=== PATIENT | male | born 1965 | race Caucasian/White ===

== ENCOUNTER 2018-09-29 12:04 | Observation (INO) ==
[2018-09-29] MEDS ORDERED: fentaNYL citrate 100 MCG/2 ML VIAL IV STA (13:06)
[2018-09-29] MEDS ORDERED: SODIUM CHLORIDE 0.9% 1000ML 1,000 ML IV ONE (13:06)
[2018-09-29] MEDS ORDERED: ONDANSETRON INJ 2 MG/ML 2 ML VIAL IV STA (13:06)
[2018-09-29 13:08] LABS: Albumin Level 3.2 gm/dl (3.4-5.0); BUN Creatinine Ratio 9.6 (10-20); Calcium 9.1 mg/dl (8.5-10.1); Creatinine Clr Calc Pharmacy 134.7 ml/min; Est GFR (African American) 120.5; Potassium 3.7 mmol/L (3.5-5.1)
[2018-09-29 13:09] LABS: Basophils # (auto) 0.04 K/uL (0-0.2); Basophils % (auto) 0.5 %; Eosinophils # (auto) 0.26 K/uL (0-0.5); Eosinophils % (auto) 3.1 %; Hematocrit (blood only) 43.3 % (42-52); Hemoglobin 15.3 g/dL (14.0-18.0); Immature Granulocytes # (auto) 0.02 K/uL (0.00-0.02); Immature Granulocytes % (auto) 0.2 %; Lymphocytes % (auto) 21.6 %; Mean Corpuscular Hgb Conc 35.3 g/dL (32-36); Mean Corpuscular Volume 91.2 fL (80-100); Mean Platelet Volume 12.4 fL (7.4-10.4); Monocytes # (auto) 0.91 K/uL (0.11-0.59); Monocytes % (auto) 10.9 %; Neutrophils # (auto) 5.29 K/uL (1.4-6.5); Neutrophils % (auto) 63.7 %; Platelet Count 238 K/uL (130-400); RDW Coefficient of Variation 13.6 % (11.5-14.5); RDW Standard Deviation 45.2 fL (36.4-46.3); Red Blood Count 4.75 M/uL (4.7-6.1); White Blood Count 8.32 K/uL (4.8-10.8)
[2018-09-29 13:11] LABS: Albumin Globulin Ratio 0.7 (0.9-2); Bilirubin,Total 0.8 mg/dl (0.2-1); Globulin 4.6 gm/dl (2.5-4.0); Total Protein 7.8 gm/dl (6.4-8.2)
[2018-09-29 13:31] LABS: Appearance Urine Clear (Clear); Bacteria Urine Automated Negative (Negative); Blood Urine Negative (Negative); Color Urine Dark Yellow; Glucose Urine UA Negative (Negative); Ketones Urine Trace (Negative); Leukocyte Esterase Urine Trace (Negative); Nitrite Urine Positive (Negative); Protein Urine Trace (Negative); RBC Urine Automated 0-4 /hpf (0-4); Specific Gravity Urine 1.026 (1.000-1.030); Urobilinogen Urine Negative (Negative); pH Urine 5.5 (4.5-7.5)
[2018-09-29 13:44] LABS: Bilirubin Urine Negative (Negative); Ictotest Urine Negative (Negative)
--- NOTE | 2018-09-29 15:41 | Ultrasound Report ---
US gallbladder HISTORY: 53 years-old Male ruq pain eval for mariann acute right upper quadrant abdominal pain COMPARISON: None available TECHNIQUE: Multiple real time sonographic images of the abdominal right upper quadrant were obtained assessing grayscale appearance and color flow FINDINGS: Limited study secondary to obscuring bowel gas and patient body habitus. Increased echogenicity of th e liver with poor through transmission suggestive of hepatic steatosis with areas of fatty sparing ne ar the sonido hepatis. Cholelithiasis with gallstones measuring up to 2.3 cm. Edematous gallbladder wa ll thickening is noted measuring up to 8 mm. No definite pericholecystic fluid. Sonographic Carlson si gn was unable to be assessed secondary to patient receiving recent pain medication. Common bile duct is normal, 6 mm. Imaged right kidney is unremarkable without hydronephrosis. IMPRESSION: 1. Cholelithiasis with edematous, gallbladder wall thickening. No definite pericholecystic fluid iden tified and the sonographic Carlson sign was unable to be assessed secondary to patient recently receiv ing pain medication. These findings are equivocal for acute cholecystitis. Correlate clinically. A fo llow-up nuclear medicine hepatobiliary scan may also be considered. 2. No biliary ductal dilation. 3. Hepatic steatosis. The above report was generated using voice recognition software. It may contain grammatical, syntax o r spelling errors. Electronically signed by: Angel Ferrell M.D. 09/29/2018 3:39 PM
--- NOTE | 2018-09-29 16:58 | History & Physical Report ---
Date of Service September 29, 2018 Assessment & Plan (1) Acute cholecystitis: This patient has right upper quadrant pain with a mildly elevated white blood cell count and an ultrasound showing cholelithiasis with thickened gallbladder wall all consistent with cholecystitis. I recommended a lapa roscopic cholecystectomy. He is agreed. Explained the possible need to convert to an open procedure. I explained the possible complications of the procedure. I answered his questions. He has signed consent form. Present on Admission?: Yes History of Present Illness Chief Complaint: Right upper quadrant pain Primary Care Provider: NO PCP This is a 53-year-old male with right upper quadrant pain that began approximately 2 days ago after having a. The pain is persisted increased in intensity. He he had some nausea and vomited the pain so. Hungry but is not a very much since. He had an episode of pain like this about 2 months ago but it resolved spontaneously after about 2 hours. The pain does not radiate through to his back. He has no history of jaundice, hepatitis or pancreatitis. He has been moving his bowels and had a normal bowel movement or hematochezia. He has a headache but does not think he has had fever. He denies chills. Allergies Allergy/AdvReac Type Severity Reaction Status Date / Time morphine Allergy Hypotension Verified 09/29/18 14:28 Penicillins Allergy Rash Verified 09/29/18 14:28 Home Medications Home Medications Medication Instructions Recorded Confirmed Type omeprazole magnesium [Prilosec OTC] 20 mg PO BID 09/29/18 09/29/18 History Past Med/Surg History Medical History HTN (hypertension) Surgical History H/O total knee replacement Right S/P tonsillectomy Family History Other Hypertension Social History Preferred Language: Lithuanian Feels Safe at Home: Yes Smoking Status: Current every day smoker Review of Systems Review of Systems: All systems reviewed & are unremarkable except as noted in HPI & below Physical Exam Constitutional: no acute distress Neck: trachea midline Respiratory: normal respiratory effort, lungs clear to auscultation Cardiovascular: Rate/Rhythm: regular rate and regular rhythm Gastrointestinal (Abdomen): Inspection/Auscultation: normal bowel sounds; abdomen not distended Percussion/Palpation: + abdomen tender (Right upper quadrant to moderate palpation) and abdomen soft Skin: no rashes, warm and dry Lymphatic: no cervical lymphadenopathy Results & Data Vital Signs (Past 12 Hours) Vital Signs Temp Pulse Pulse Resp BP BP Pulse Ox 09/29/18 16:00 96 H 20 126/95 97 09/29/18 13:45 96 H 16 149/95 H 97 09/29/18 12:08 36.9 C 121 H 22 135/76 97 Laboratory Results 09/29/18 09/29/18 09/29/18 Range/Units 12:38 12:38 12:38 WBC 8.32 (4.8-10.8) K/uL RBC 4.75 (4.7-6.1) M/uL Hgb 15.3 (14.0-18.0) g/dL Hct 43.3 (42-52) % MCV 91.2 (80-100) fL MCH 32.2 (25-34) pg MCHC 35.3 (32-36) g/dL RDW Std Deviation 45.2 (36.4-46.3) fL RDW Coeff of Danny 13.6 (11.5-14.5) % Plt Count 238 (130-400) K/uL MPV 12.4 H (7.4-10.4) fL Immature Gran % (Auto) 0.2 % Neut % (Auto) 63.7 % Lymph % (Auto) 21.6 % [place] % (Auto) 10.9 % Eos % (Auto) 3.1 % Baso % (Auto) 0.5 % Immature Gran # (Auto) 0.02 (0.00-0.02) K/uL Neut # (Auto) 5.29 (1.4-6.5) K/uL Lymph # (Auto) 1.80 (1.2-3.4) K/uL [place] # (Auto) 0.91 H (0.11-0.59) K/uL Eos # (Auto) 0.26 (0-0.5) K/uL Baso # (Auto) 0.04 (0-0.2) K/uL Sodium 136 (136-145) mmol/L Potassium 3.7 (3.5-5.1) mmol/L Chloride 102 (98-107) mmol/L Carbon Dioxide 29 (21-32) mmol/L Anion Gap 5.0 (3-11) BUN 8 (7-18) mg/dl Creatinine 0.79 (0.6-1.4) mg/dl Est Cr Clr Drug Dosing 134.7 ml/min Est GFR ( Amer) 120.5 Est GFR (Non-Af Amer) 104.0 BUN/Creatinine Ratio 9.6 L (10-20) Glucose 106 H (70-99) mg/dl Calcium 9.1 (8.5-10.1) mg/dl Total Bilirubin 0.8 (0.2-1) mg/dl AST 41 H (15-37) U/L ALT 80 H (12-78) U/L Alkaline Phosphatase 83 (45-117) U/L Total Protein 7.8 (6.4-8.2) gm/dl Albumin 3.2 L (3.4-5.0) gm/dl Globulin 4.6 H (2.5-4.0) gm/dl Albumin/Globulin Ratio 0.7 L (0.9-2) Lipase 131 (73-393) U/L Urine Color Dark Yellow Urine Appearance Clear (Clear) Urine pH 5.5 (4.5-7.5) Ur Specific [place] 1.026 (1.000-1.030) Urine Protein Trace H (Negative) Urine Glucose (UA) Negative (Negative) Urine Ketones Trace H (Negative) Urine Blood Negative (Negative) Urine Nitrite Positive A (Negative) Urine Bilirubin Negative (Negative) Urine Urobilinogen Negative (Negative) Ur Leukocyte Esterase Trace H (Negative) Urine WBC (Auto) 1-5 (0-5) /hpf Urine RBC (Auto) 0-4 (0-4) /hpf U Hyaline Cast (Auto) 1-5 (0-5) /lpf U Epithel Cells (Auto) 5-10 H (0-5) /lpf Urine Bacteria (Auto) Negative (Negative) Diagnostic Findings US gallbladder HISTORY: 53 years-old Male ruq pain eval for mariann acute right upper quadrant abdominal pain COMPARISON: None available TECHNIQUE: Multiple real time sonographic images of the abdominal right upper quadrant were obtained assessing grayscale appearance and color flow FINDINGS: Limited study secondary to obscuring bowel gas and patient body habitus. Increased echogenicity of the liver with poor through transmission suggestive of hepatic steatosis with areas of fatty sparing near the sonido hepatis. Cholelithiasis with gallstones measuring up to 2.3 cm. Edematous gallbladder wall thickening is noted measuring up to 8 mm. No definite pericholecystic fluid. Sonographic Carlson sign was unable to be assessed secondary to patient receiving recent pain medication. Common bile duct is normal, 6 mm. Imaged right kidney is unremarkable without hydronephrosis. IMPRESSION: 1. Cholelithiasis with edematous, gallbladder wall thickening. No definite pericholecystic fluid identified and the sonographic Carlson sign was unable to be assessed secondary to patient recently receiving pain medication. These findings are equivocal for acute cholecystitis. Correlate clinically. A follow- up nuclear medicine hepatobiliary scan may also be considered. 2. No biliary ductal dilation. 3. Hepatic steatosis.
[2018-09-29] MEDS ORDERED: PROPOFOL IV EMULSION 10 MG/ML 20 ML VIAL IV ONE (17:14)
[2018-09-29] MEDS ORDERED: LIDOCAINE HCL 2% 2 ML VIAL/AMP(20MG/ML) INFIL ONE (17:14)
[2018-09-29] MEDS ORDERED: MIDAZOLAM HCL 1 MG/ML 2ML VIAL ONE (17:15)
[2018-09-29] MEDS ORDERED: fentaNYL citrate 100 MCG/2 ML VIAL ONE ×3 (17:15→21:11)
[2018-09-29] MEDS ORDERED: ATROPINE SULFATE 0.1 MG/ML 10ML SYR IV PRN (17:39)
[2018-09-29] MEDS ORDERED: PHENYLEPHRINE 100MCG/ML 5ML SYR IV PRN (17:39)
[2018-09-29] MEDS ORDERED: HYDROmorphone INJ 1 MG/ML SYRINGE IV PRN (17:39)
[2018-09-29] MEDS ORDERED: LABETALOL HCL IV 5 MG/ML 20ML IV PRN (17:39)
[2018-09-29] MEDS ORDERED: ePHEDrine sulfate 50 MG/ML AMP IV PRN (17:39)
[2018-09-29] MEDS ORDERED: fentaNYL citrate 100 MCG/2 ML VIAL IV PRN (17:39)
[2018-09-29] MEDS ORDERED: ONDANSETRON INJ 2 MG/ML 2 ML VIAL IV PRN (17:39)
[2018-09-29] MEDS ORDERED: BUPIVACAINE 0.5 % 5 MG/1 ML MPF 30ML VIAL ONE (17:46)
[2018-09-29] MEDS ORDERED: CEFAZOLIN 250 MG/ML 1 GM VIAL ONE (17:46)
--- NOTE | 2018-09-29 17:47 | Anesthesiology Consultation ---
Date of Service September 29, 2018 Assessment & Plan (1) Encounter for pre-operative examination: Chart Review Chart Review: Acceptable Risk for Surgery and Patient NOT seen in Pre Admission Testing Consults Requested none History Surgery Operation Date: 09/29/18 09:35 Proposed Procedures p Laparoscopic Cholecystectomy - Mars Busby MD Height/Weight Height: 5 ft 11 in Weight: 102.2 kg Allergies Allergy/AdvReac Type Severity Reaction Status Date / Time morphine Allergy Hypotension Verified 09/29/18 14:28 Penicillins Allergy Rash Verified 09/29/18 14:28 Medications Home Medications Medication Instructions Recorded Confirmed Last Taken omeprazole magnesium [Prilosec OTC] 20 mg PO BID 09/29/18 09/29/18 09/29/18 NPO Date Last Intake of Fluids: 09/28/18 Time Last Intake of Fluids: 08:00 Date Last Intake of Solids: 09/28/18 Time Last Intake of Solids: 08:00 Past Medical History Medical History HTN (hypertension) Obesity Smoker Past Family History Family History Other Hypertension Past Surgical History Surgical History H/O total knee replacement Right S/P tonsillectomy Social History Smoking Status: Current every day smoker Physical Exam Vital Signs Last Vital Signs Temp 36.4 C L 09/29/18 17:44 Pulse 100 H 09/29/18 17:44 Resp 18 09/29/18 17:44 BP 112/89 09/29/18 17:44 Pulse Ox 97 09/29/18 17:44 Testing Laboratory Results 09/29/18 12:38 09/29/18 12:38 Urine Color Dark Yellow 09/29/18 12:38 Urine Appearance Clear (Clear) 09/29/18 12:38 Urine pH 5.5 (4.5-7.5) 09/29/18 12:38 Ur Specific [place] 1.026 (1.000-1.030) 09/29/18 12:38 Urine Protein Trace (Negative) H 09/29/18 12:38 Urine Glucose (UA) Negative (Negative) 09/29/18 12:38 Urine Ketones Trace (Negative) H 09/29/18 12:38 Urine Nitrite Positive (Negative) A 09/29/18 12:38 Ur Leukocyte Esterase Trace (Negative) H 09/29/18 12:38 Urine WBC (Auto) 1-5 /hpf (0-5) 09/29/18 12:38 Urine RBC (Auto) 0-4 /hpf (0-4) 09/29/18 12:38 U Hyaline Cast (Auto) 1-5 /lpf (0-5) 09/29/18 12:38 U Epithel Cells (Auto) 5-10 /lpf (0-5) H 09/29/18 12:38 Urine Bacteria (Auto) Negative (Negative) 09/29/18 12:38 Electrocardiogram Date: 09/29/18 Findings: + NSR @ (03)
[2018-09-29] MEDS ORDERED: CLINDAMYCIN PHOS 300 MG/2 ML VIAL ONE (18:08)
[2018-09-29] MEDS ORDERED: HYDROmorphone INJ 2 MG/ML SYR/VIAL ONE (18:11)
[2018-09-29] MEDS: HEPARIN (PORCINE) 1000 UNIT/ML 10 ML (CATH LAB USE ONLY) ONE ×2 (18:17→19:21)
--- NOTE | 2018-09-29 18:21 | Emergency Department Note ---
Entered by Lesly Madden acting as a scribe for Manuel Lara MD History of Present Illness General Chief complaint: Abdominal Pain Stated complaint: PAIN IN [id number] ATE IN 2 DAYS Source: patient Mode of arrival: ambulatory Limitations: no limitations History of Present Illness Onset (ago): day(s) 3 Location: abdomen (RUQ) Radiation: back Pain Consistency: + constant Maximum Pain Intensity: 8 Current Pain Intensity: 5 Quality: + sharp Relieved By: + none Exacerbated By: + eating (greasy foods) and + movement Associated symptoms: + loss of appetite, + nausea/vomiting and + other (+yandy rrhea, -hematochezia, -melena ) Treatments prior to arrival: none The patient is a 53 year old male who presents to the ED with complaints of persistent RUQ abdominal pain for the past 3 days. He rates his pain as a 5/10 in severity and states it feels sharp in nature. Movement worsens his pain. The pain does radiate into his back. He states he has not been eating much as eating worsens his pain, especially eating greasy foods. He has been nauseous and has vomited. He denies any bloody or black stools but complains of diarrhea. He last drank alcohol about 1 week ago. He does state that he was previously diagnosed with high blood pressure but was taken off of medications for it. Home Medications Home Medications Medication Instructions Recorded Confirmed Type omeprazole magnesium [Prilosec OTC] 20 mg PO BID 09/29/18 09/29/18 History Allergies Allergy/AdvReac Type Severity Reaction Status Date / Time morphine Allergy Hypotension Verified 09/29/18 14:28 Penicillins Allergy Rash Verified 09/29/18 14:28 Past Med/Surg History Medical History HTN (hypertension) Obesity Smoker Surgical History H/O total knee replacement Right S/P tonsillectomy Family History Other Hypertension Social History Preferred Language: Botswanan Feels Safe at Home: Yes Smoking Status: Current every day smoker Review of Systems See HPI for pertinent positives & negatives. and A total of 10 systems reviewed and were otherwise negative Physical Exam Vital Signs Vital Signs - 24 hr 09/29/18 12:08 09/29/18 13:45 09/29/18 16:00 Temperature 36.9 C Temperature Source Oral Sepsis Recent Fever Within 48 Hours No Sepsis New/Unexplained Change in Mental Status No Sepsis Action Taken by Nursing No Action Required Pulse Rate 121 H Pulse Rate [Finger] 96 H 96 H Pulse Rhythm Regular Pulse Rhythm [Finger] Regular Pulse Strength Normal Pulse Strength [Finger] Normal Respiratory Rate 22 16 20 Respiratory Effort / Characteristics Non-Labored Spontaneous Respiratory Depth Normal Respiratory Pattern Regular Blood Pressure 135/76 Blood Pressure [Right Arm] 149/95 H 126/95 Blood Pressure Mean 95 Blood Pressure Mean [Right Arm] 113 105 Blood Pressure Position Sitting Blood Pressure Position [Right Arm] Pulse Oximetry 97 97 97 Oxygen Delivery Method Room Air Room Air Room Air 09/29/18 17:30 09/29/18 17:44 Temperature 36.4 C L Temperature Source Oral Sepsis Recent Fever Within 48 Hours Sepsis New/Unexplained Change in Mental Status Sepsis Action Taken by Nursing Pulse Rate 84 Pulse Rate [Finger] 100 H Pulse Rhythm Pulse Rhythm [Finger] Regular Pulse Strength Pulse Strength [Finger] Normal Respiratory Rate 20 18 Respiratory Effort / Characteristics Non-Labored Spontaneous Respiratory Depth Normal Respiratory Pattern Regular Blood Pressure 124/90 Blood Pressure [Right Arm] 112/89 Blood Pressure Mean Blood Pressure Mean [Right Arm] 96 Blood Pressure Position Blood Pressure Position [Right Arm] Semi-fowlers Pulse Oximetry 97 97 Oxygen Delivery Method Room Air Room Air Constitutional: Vital signs reviewed. Eyes: Pupils are equal round reactive to light. Conjunctiva are noninjected. ENT: Pharynx is clear without erythema or exudate. Mucous membranes are moist. Neck supple without meningeal signs. Respiratory: Clear to auscultation bilaterally. Breath sounds are equal bilaterally. Cardiovascular: Regular rate and rhythm. No rubs or gallops. GI: Soft, nondistended, RUQ tenderness with positive Carlson's sign. Bowel sounds are present. Musculoskeletal: No peripheral edema. No lower extremity tenderness. No CVA tenderness. Integumentary: No cyanosis. Neurological: The patient is awake and alert. No focal deficits. Psychiatric: Normal affect. Course 1302: The patient was evaluated in room A11B and a complete history and physical were performed. 1600: I reevaluated the patient. He is distiller with a [place] sign. I discussed his test results with him and will consult with general surgery. 1619: I discussed the patients case with Dr. Busby, [facility] Surgery. The patient will be further evaluated. Consultations Consultation #1: I discussed the patients case with Dr. Busby, [facility] Surgery. The patient will be further evaluated. Time: 16:19 Administered Medications Discontinued Medications Cefazolin Sodium (Ancef) Confirm Administered Dose 1,000 mg .ROUTE .STK-MED ONE Stop: 09/29/18 17:47 Last Admin: 09/29/18 18:17 Dose: Not Given Documented by: [id number] Clindamycin Phosphate (Cleocin) Confirm Administered Dose 900 mg .ROUTE .STK-MED ONE Stop: 09/29/18 18:09 Last Admin: 09/29/18 18:07 Dose: 900 mg Documented by: [id number] Fentanyl Citrate (Fentanyl Citrate) 50 mcg IV NOW STA Stop: 09/29/18 13:07 Last Admin: 09/29/18 13:19 Dose: 50 mcg Documented by: [id number] Heparin Sodium (Porcine) (Heparin Iv Bolus ([employer] Greek [employer] Professor Use Only)) Confirm Administered Dose 10,000 units .ROUTE .STK-MED ONE Stop: 09/29/18 17:47 Last Admin: 09/29/18 18:17 Dose: 5,000 units Documented by: [id number] Sodium Chloride (Nss 1000ml) 1,000 mls @ 999 mls/hr IV .Q1H1M ONE Stop: 09/29/18 14:06 Last Infusion: 09/29/18 16:00 Dose: 0 mls/hr Documented by: [id number] Admin: 09/29/18 13:19 Dose: 999 mls/hr Documented by: [id number] Ondansetron HCl (Zofran) 4 mg IV NOW STA Stop: 09/29/18 13:07 Last Admin: 09/29/18 13:19 Dose: 4 mg Documented by: [id number] Medical Decision Making Differential Diagnosis Differential diagnoses considered include cholelithiasis, cholecystitis, peptic ulcer disease, duodenitis, pancreatitis, kidney stone. Medical Records Attestation: I reviewed the patient's medical records. I did perform a limited focused review of portions of the patient's old chart on the electronic medical record. The patient has had no prior visits to this hospital. Home Medications Current Medication List: was personally reviewed by me Laboratory Data Attestation: I reviewed the patient's lab results. Result diagrams: 09/29/18 12:38 09/29/18 12:38 Lab Results 09/29/18 09/29/18 09/29/18 Range/Units 12:38 12:38 12:38 WBC 8.32 (4.8-10.8) K/uL RBC 4.75 (4.7-6.1) M/uL Hgb 15.3 (14.0-18.0) g/dL Hct 43.3 (42-52) % MCV 91.2 (80-100) fL MCH 32.2 (25-34) pg MCHC 35.3 (32-36) g/dL RDW Std Deviation 45.2 (36.4-46.3) fL RDW Coeff of Danny 13.6 (11.5-14.5) % Plt Count 238 (130-400) K/uL MPV 12.4 H (7.4-10.4) fL Immature Gran % (Auto) 0.2 % Neut % (Auto) 63.7 % Lymph % (Auto) 21.6 % [place] % (Auto) 10.9 % Eos % (Auto) 3.1 % Baso % (Auto) 0.5 % Immature Gran # (Auto) 0.02 (0.00-0.02) K/uL Neut # (Auto) 5.29 (1.4-6.5) K/uL Lymph # (Auto) 1.80 (1.2-3.4) K/uL [place] # (Auto) 0.91 H (0.11-0.59) K/uL Eos # (Auto) 0.26 (0-0.5) K/uL Baso # (Auto) 0.04 (0-0.2) K/uL Sodium 136 (136-145) mmol/L Potassium 3.7 (3.5-5.1) mmol/L Chloride 102 (98-107) mmol/L Carbon Dioxide 29 (21-32) mmol/L Anion Gap 5.0 (3-11) BUN 8 (7-18) mg/dl Creatinine 0.79 (0.6-1.4) mg/dl Est Cr Clr Drug Dosing 134.7 ml/min Est GFR ( Amer) 120.5 Est GFR (Non-Af Amer) 104.0 BUN/Creatinine Ratio 9.6 L (10-20) Glucose 106 H (70-99) mg/dl Calcium 9.1 (8.5-10.1) mg/dl Total Bilirubin 0.8 (0.2-1) mg/dl AST 41 H (15-37) U/L ALT 80 H (12-78) U/L Alkaline Phosphatase 83 (45-117) U/L Total Protein 7.8 (6.4-8.2) gm/dl Albumin 3.2 L (3.4-5.0) gm/dl Globulin 4.6 H (2.5-4.0) gm/dl Albumin/Globulin Ratio 0.7 L (0.9-2) Lipase 131 (73-393) U/L Urine Color Dark Yellow Urine Appearance Clear (Clear) Urine pH 5.5 (4.5-7.5) Ur Specific [place] 1.026 (1.000-1.030) Urine Protein Trace H (Negative) Urine Glucose (UA) Negative (Negative) Urine Ketones Trace H (Negative) Urine Blood Negative (Negative) Urine Nitrite Positive A (Negative) Urine Bilirubin Negative (Negative) Urine Urobilinogen Negative (Negative) Ur Leukocyte Esterase Trace H (Negative) Urine WBC (Auto) 1-5 (0-5) /hpf Urine RBC (Auto) 0-4 (0-4) /hpf U Hyaline Cast (Auto) 1-5 (0-5) /lpf U Epithel Cells (Auto) 5-10 H (0-5) /lpf Urine Bacteria (Auto) Negative (Negative) Imaging Data Radiologist's Impression: Radiology results as stated below per my review and the radiologist's interpretation: US gallbladder HISTORY: 53 years-old Male ruq pain eval for mariann acute right upper quadrant abdominal pain COMPARISON: None available TECHNIQUE: Multiple real time sonographic images of the abdominal right upper quadrant were obtained assessing grayscale appearance and color flow FINDINGS: Limited study secondary to obscuring bowel gas and patient body habitus. Increased echogenicity of the liver with poor through transmission suggestive of hepatic steatosis with areas of fatty sparing near the sonido hepatis. Cholelithiasis with gallstones measuring up to 2.3 cm. Edematous gallbladder wall thickening is noted measuring up to 8 mm. No definite pericholecystic fluid. Sonographic Carlson sign was unable to be assessed secondary to patient receiving recent pain medication. Common bile duct is normal, 6 mm. Imaged right kidney is unremarkable without hydronephrosis. IMPRESSION: 1. Cholelithiasis with edematous, gallbladder wall thickening. No definite pericholecystic fluid identified and the sonographic Carlson sign was unable to be assessed secondary to patient recently receiving pain medication. These findings are equivocal for acute cholecystitis. Correlate clinically. A follow- up nuclear medicine hepatobiliary scan may also be considered. 2. No biliary ductal dilation. 3. Hepatic steatosis. The above report was generated using voice recognition software. It may contain grammatical, syntax or spelling errors. Electronically signed by: Angel Ferrell M.D. 09/29/2018 3:39 PM Blood Pressure Blood Pressure Findings: Elevated blood pressure Blood Pressure Disposition: elevated BP felt to be situational MDM Narrative I did evaluate the patient as noted above. Patient is presenting with right upper quadrant tenderness and pain. He does have a Carlson sign. IV access was established. The patient was placed on a continuous cafeteria monitor. I did treat the patient with IV fentanyl and Zofran. He was also given normal saline IV. I did order a urine analysis. I did order and review the patient's blood work as noted in the electronic medical record. His white blood cell count is not elevated. LFTs are unremarkable. Lipase is not elevated. I did order an ultrasound the gallbladder. I did review the images myself as well as the radiology report as described above. He does have gallstones with an edematous thickened gallbladder wall. I did reassess the patient. He is still having p ain and has a Carlson sign. I did speak to Dr. Busby who took the patient to the operating room. Impression & Plan Acute cholecystitis Discharge Plan Visit Data Chief Complaint: Abdominal Pain Stated Complaint: PAIN IN [id number] ATE IN 2 DAYS ED Provider: Manuel Lara Discharge Problem: Acute cholecystitis Patient Disposition: Being Evaluated by Surgeon Discharge Instructions Interventions: ED Discharge Assessment Last Done: 09/29/18 17:30 The scribe's documentation has been prepared under my direction and personally reviewed by me in its entirety. I confirm that the note above accurately reflects all work, treatment, procedures, and medical decision making performed by me.
[2018-09-29] MEDS ORDERED: DEXAMETHASONE SOD INJ 4 MG/ML VIAL ONE (18:41)
[2018-09-29] MEDS ORDERED: KETOROLAC 30 MG/ML VIAL ONE (18:41)
[2018-09-29] MEDS ORDERED: NEOSTIGMINE METHYLSULFATE 5 MG/5 ML SYR ONE (18:41)
[2018-09-29] MEDS ORDERED: ONDANSETRON INJ 2 MG/ML 2 ML VIAL ONE (18:41)
[2018-09-29] MEDS ORDERED: GLYCOPYRROLATE 0.2 MG/ML VIAL ONE (18:41)
[2018-09-29] MEDS ORDERED: ROCURONIUM BROMIDE 10 MG/ML 5 ML VIAL ONE ×3 (18:43→19:35)
[2018-09-29] MEDS ORDERED: FLOSEAL HEMOSTATIC MATRIX 10ML TOP ONE (19:47)
--- NOTE | 2018-09-29 20:49 | Post Operative Brief Note ---
Immediate Post Op Note v1 Date of Surgery September 29, 2018 Pre & Post Diagnosis Operation Date: 09/29/18 09:35 Pre-Op Diagnosis: Acute Cholecystitis Post-Op Diagnosis: Acute Cholecystitis Procedure Operation Date: 09/29/18 09:35 Actual Procedures Laparoscopic Cholecystectomy(Not Applicable) - Mars Busby MD Surgeon Mars Busby MD [employer] And [employer] Supervisor None Estimated Blood Loss 100 Findings Consistent with Post-Op Diagnosis Specimens Gallbladder and contents Drains Kostas-Arshad Drain (10 flat in subhepatic space) Anesthesia Type General Complications none
[2018-09-29] MEDS ORDERED: LABETALOL HCL IV 5 MG/ML 20ML IV ONE (21:00)
[2018-09-29] MEDS ORDERED: HYDROmorphone INJ 1 MG/ML SYRINGE ONE (21:46)
--- NOTE | 2018-09-29 22:00 | Anesthesiology Progress Note ---
Date of Service September 29, 2018 Anesthesia Post Procedure Vital Signs Vital Signs: Temp Pulse Pulse Pulse Resp BP BP 09/29/18 21:50 37.0 C 97 H 21 151/103 H 09/29/18 21:40 37.0 C 91 H 15 135/108 H 09/29/18 21:30 37.0 C 92 H 20 119/103 H 09/29/18 21:20 37.0 C 93 H 19 144/111 H 09/29/18 21:10 37.0 C 99 H 16 144/113 H 09/29/18 20:58 37.0 C 99 H 16 160/101 H 09/29/18 17:44 36.4 C L 100 H 18 112/89 09/29/18 17:30 84 20 124/90 09/29/18 16:00 96 H 20 126/95 09/29/18 13:45 96 H 16 149/95 H 09/29/18 12:08 36.9 C 121 H 22 135/76 Pulse Ox 09/29/18 21:50 96 09/29/18 21:40 97 09/29/18 21:30 96 09/29/18 21:20 99 09/29/18 21:10 96 09/29/18 20:58 97 09/29/18 17:44 97 09/29/18 17:30 97 09/29/18 16:00 97 09/29/18 13:45 97 09/29/18 12:08 97 Pain Intensity Abdomen: Pain Intensity: 3 Transfer of Care Handoff Completed per policy Notes Mental Status: alert / awake / arousable Patient Amnestic to Procedure: Yes Nausea / Vomiting: adequately controlled Pain: adequately controlled Airway Patency, RR, SpO2: stable & adequate BP & HR: stable & adequate Hydration State: stable & adequate Anesthetic Complications: no major complications apparent and Pt Satisfied with anesthetic care
[2018-09-29] MEDS: D5W AND 1/2NSS + 20MEQ KCL 20 MEQ/1,000 ML BAG IV SCH (23:00)
[2018-09-29] MEDS: ONDANSETRON INJ 2 MG/ML 2 ML VIAL IV PRN (23:31)
[2018-09-30] MEDS ORDERED: PROMETHAZINE HCL 12.5 MG in SODIUM CHLORIDE 0.9% 50 ML IV PRN (00:12)
[2018-09-30] MEDS: PANTOprazole 40 MG TAB PO SCH ×3 (00:25→20:40)
[2018-09-30] MEDS: OXYCODONE/ACETAMINOPHEN 5mg/325mg TAB PO PRN ×5 (00:33→23:16)
[2018-09-30] MEDS: CIPROFLOXACIN 400 MG/200 ML BAG IV SCH ×2 (00:48→12:58)
--- NOTE | 2018-09-30 04:34 | Operative Report ---
DATE OF OPERATION: 09/29/2018 DATE OF PROCEDURE: 09/29/2018 PREOPERATIVE DIAGNOSIS: Acute cholecystitis. POSTOPERATIVE DIAGNOSIS: Acute cholecystitis. PROCEDURE: Laparoscopic cholecystectomy. SURGEON: Mars Busby MD FINDINGS: The gallbladder was acutely inflamed. It was distended. There were multiple large stones within the lumen. There was a lot of thickening of the peritoneum and connective tissue, surrounding that area. The cystic duct was not dilated. There were adhesions of the omentum plastered to the entire wall of the gallbladder and to the liver surface around the gallbladder. The liver was of normal size and contour and the visible bowel appeared normal. TECHNIQUE: The patient was given a general anesthetic and the area was prepped and draped in the usual sterile fashion. Transverse incision was made below the umbilicus, carried down through the subcutaneous tissue to the fascia which was grasped with 2 Tiana clamps and incised between. The peritoneum was identified, incised, and the introducer was placed bluntly. The abdomen was then insufflated to a pressure of 15 mmHg with carbon dioxide. The upper midline, midclavicular and anterior axillary introducers were placed under direct vision through small skin incisions. The patient was placed in reverse Trendelenburg position and airplane left. There was some omentum up over the anterior surface of the liver, it was brought down below the edge of the liver which exposed the fact that there were omental adhesions that were densely adhesed to the gallbladder and also to the liver edge and to the liver surface to the medial and lateral sides of the gallbladder. In fact, I could not even initially see the wall of the gallbladder. I placed downward traction on the omentum and dissected it away from the liver first around the edge and then working medial to lateral until I could identify the fundus wall of the gallbladder. I then had to sharply dissect the omentum away from the wall of the gallbladder there. I then was able to work down along the lateral side of the gallbladder dissecting adhesions away from the liver to expose the wall of the gallbladder. I could not grasp the gallbladder and so the drainage needle was brought under direct vision and placed into the gallbladder and the gallbladder was aspirated. That allowed me to grasp the gallbladder to some degree and place upward lateral tension. I then had to dissect the plastered omentum away from the wall of the gallbladder. It required significant dissection almost millimeter by millimeter as a distinct plane was difficult to identify. In working down towards the neck of the gallbladder, there were adhesions to the undersurface of the liver and I had to divide those as well on the medial side of the gallbladder. I then continued that dissection down. It was difficult to identify exactly where the infundibulum and the neck of the gallbladder was located. Further dissection of the omentum on the lateral side exposed the infundibulum and towards the neck of the gallbladder and I peeled the additional omentum away, then was able to grasp that and place upward traction. There was significant thickening of the peritoneum over the neck of the gallbladder. This required again very careful dissection as a plane was not well-established, but I was able to follow the wall down and was able then to get underneath the lateral aspect of the infundibulum and placed lateral traction which opened somewhat the triangle of Calot. I then dissected the peritoneum over the infundibulum and into the triangle of Calot and divided some of the attachments of the liver there. It required some hydrodissection with the auto air conditioning installer as well as careful again millimeter by millimeter dissection until I could identify the cystic duct. I then was able to establish a plane along the medial aspect of the cystic duct and identify the cystic artery. I was able to separate the thickened adhesions posteriorly isolating the cystic artery. I placed 2 clips on the proximal artery, one near the gallbladder and divided. That allowed for a little bit better mobilization of the neck of the gallbladder. I was then able to dissect some very thickened peritoneum and connective tissue away from the medial wall and establish a plane behind the cystic duct and identify its junction with the gallbladder confidently. Two clips were placed on the proximal cystic duct, 1 near the gallbladder and it was divided. That allowed me to elevate the infundibulum and identify a small posterior branch of the artery which was clamped and divided. I then worked up along the medial side of the gallbladder and then along the lateral side, dividing the attachments and working posteriorly. There was not a well-established plane between the gallbladder wall and the liver. I then placed lateral traction on the fundus and divided the fundus away from the liver. I was then able to peel the gallbladder away on the upper side. I then worked down along the medial aspect of the gallbladder, dividing the thickened peritoneum and working towards the lateral side. That allowed me to then identify the attachments on the lateral side. I worked from the fundus down trying to establish a plane behind the gallbladder, so as to not leave part of the wall of the gallbladder behind. Eventually all of the attachments were divided, and I was able to completely separate the gallbladder. I then placed the gallbladder into an Endobag. It was brought out through the upper midline incision where I had to increase the length of the incision in all of the layers in order to extract it but that was accomplished. I placed 2 stitches in the fascia of the upper midline site first in order to close some of that, to prevent gas escape while I replace the introducer. The liver edge was elevated. The subdiaphragmatic and subhepatic spaces were irrigated and irrigation removed. Any blood loss was evacuated. The gallbladder bed of the liver was inspected. There was no bleeding. I inspected the clips and they were intact. I then continued to irrigate and then removed the irrigation and repeated that until the return was clear. Because of the raw surface of the liver, I filled the gallbladder bed of the liver with FloSeal. I brought a 10 mm Ksotas-Arshad drain after cutting it to size out through the anterior axillary introducer site. It was secured at the skin level with a 3-0 nylon. The gas was allowed to escape and the introducers were removed. The fascia of the umbilical and upper midline introducer sites was closed with interrupted 0 Vicryl and the skin of all the incisions, remaining was closed with 4-0 Monocryl in either an interrupted or running subcuticular fashion. The skin was anesthetized with 0.5% Marcaine. The skin was cleansed, dried, benzoin placed, Steri-Strips applied. ESTIMATED BLOOD LOSS: 100 mL. Sponge, needle and instrument counts were correct prior to closure. The patient tolerated the surgical procedure without complication and was transferred to recovery. I attest to the content of the Intraoperative Record and any orders documented therein. Any exceptions are noted below. HILARY
[2018-09-30] MEDS: D5W AND 1/2NSS + 20MEQ KCL 20 MEQ/1,000 ML BAG IV SCH ×3 (06:22→23:14)
[2018-09-30 07:22] LABS: Basophils # (auto) 0.01 K/uL (0-0.2); Basophils % (auto) 0.1 %; Eosinophils # (auto) 0.01 K/uL (0-0.5); Eosinophils % (auto) 0.1 %; Hemoglobin 12.7 g/dL (14.0-18.0); Immature Granulocytes # (auto) 0.02 K/uL (0.00-0.02); Immature Granulocytes % (auto) 0.2 %; Lymphocytes # (auto) 1.01 K/uL (1.2-3.4); Lymphocytes % (auto) 11.5 %; Mean Corpuscular Hgb Conc 34.3 g/dL (32-36); Mean Corpuscular Volume 90.9 fL (80-100); Mean Platelet Volume 12.1 fL (7.4-10.4); Monocytes # (auto) 0.61 K/uL (0.11-0.59); Neutrophils % (auto) 81.1 %; Platelet Count 237 K/uL (130-400); RDW Coefficient of Variation 13.8 % (11.5-14.5); RDW Standard Deviation 45.5 fL (36.4-46.3); Red Blood Count 4.07 M/uL (4.7-6.1); White Blood Count 8.76 K/uL (4.8-10.8)
[2018-09-30] MEDS: MoRPHine SULFATE 4 MG/ML 1 ML CARP\\VIAL IV PRN ×3 (09:06→18:17)
--- NOTE | 2018-09-30 09:17 | Surgery Progress Note ---
Date of Service September 30, 2018 Assessment & Plan (1) Acute cholecystitis: Postoperative day #1, status post laparoscopic cholecystectomy Doing well Tolerating a diet Continue to monitor KELLI output Continue analgesia Increase ambulation White blood cell count has returned to normal H&H stable Present on Admission?: Yes Subjective Postoperative day #1, status post laparoscopic cholecystectomy Has some discomfort in the right upper quadrant especially with a deep breath Denies shortness of breath however Tolerated a regular diet without nausea or vomiting Has passed a small amount of flatus [facility] has had 90 cc of serosanguineous out since surgery Results & Data Vital Signs (Past 12 Hours) Vital Signs Temp Pulse Pulse Resp BP BP Pulse Ox 09/30/18 06:56 36.8 C 98 H 18 114/74 93 09/30/18 05:45 36.9 C 70 18 133/87 96 09/30/18 01:45 36.6 C 90 18 120/79 96 09/30/18 00:45 36.4 C L 98 H 16 109/78 97 09/29/18 23:44 36.7 C 94 H 16 130/82 93 09/29/18 23:41 36.4 C L 95 H 18 136/74 94 09/29/18 23:11 36.8 C 75 18 115/73 94 09/29/18 22:30 37.0 C 85 15 132/90 100 09/29/18 22:00 37.0 C 85 15 132/90 100 09/29/18 21:50 37.0 C 97 H 21 151/103 H 96 09/29/18 21:40 37.0 C 91 H 15 135/108 H 97 09/29/18 21:30 37.0 C 92 H 20 119/103 H 96 09/29/18 21:20 37.0 C 93 H 19 144/111 H 99 Laboratory Results 09/30/18 09/29/18 09/29/18 Range/Units 07:09 12:38 12:38 WBC 8.76 (4.8-10.8) K/uL RBC 4.07 L (4.7-6.1) M/uL Hgb 12.7 L (14.0-18.0) g/dL Hct 37.0 L (42-52) % MCV 90.9 (80-100) fL MCH 31.2 (25-34) pg MCHC 34.3 (32-36) g/dL RDW Std Deviation 45.5 (36.4-46.3) fL RDW Coeff of Danny 13.8 (11.5-14.5) % Plt Count 237 (130-400) K/uL MPV 12.1 H (7.4-10.4) fL Immature Gran % (Auto) 0.2 % Neut % (Auto) 81.1 % Lymph % (Auto) 11.5 % Mathews % (Auto) 7.0 % Eos % (Auto) 0.1 % Baso % (Auto) 0.1 % Immature Gran # (Auto) 0.02 (0.00-0.02) K/uL Neut # (Auto) 7.10 H (1.4-6.5) K/uL Lymph # (Auto) 1.01 L (1.2-3.4) K/uL Mathews # (Auto) 0.61 H (0.11-0.59) K/uL Eos # (Auto) 0.01 (0-0.5) K/uL Baso # (Auto) 0.01 (0-0.2) K/uL Sodium 136 (136-145) mmol/L Potassium 3.7 (3.5-5.1) mmol/L Chloride 102 (98-107) mmol/L Carbon Dioxide 29 (21-32) mmol/L Anion Gap 5.0 (3-11) BUN 8 (7-18) mg/dl Creatinine 0.79 (0.6-1.4) mg/dl Est Cr Clr Drug Dosing 134.7 ml/min Est GFR ( Amer) 120.5 Est GFR (Non-Af Amer) 104.0 BUN/Creatinine Ratio 9.6 L (10-20) Glucose 106 H (70-99) mg/dl Calcium 9.1 (8.5-10.1) mg/dl Total Bilirubin 0.8 (0.2-1) mg/dl AST 41 H (15-37) U/L ALT 80 H (12-78) U/L Alkaline Phosphatase 83 (45-117) U/L Total Protein 7.8 (6.4-8.2) gm/dl Albumin 3.2 L (3.4-5.0) gm/dl Globulin 4.6 H (2.5-4.0) gm/dl Albumin/Globulin Ratio 0.7 L (0.9-2) Lipase 131 (73-393) U/L Urine Color Dark Yellow Urine Appearance Clear (Clear) Urine pH 5.5 (4.5-7.5) Ur Specific [place] 1.026 (1.000-1.030) Urine Protein Trace H (Negative) Urine Glucose (UA) Negative (Negative) Urine Ketones Trace H (Negative) Urine Blood Negative (Negative) Urine Nitrite Positive A (Negative) Urine Bilirubin Negative (Negative) Urine Urobilinogen Negative (Negative) Ur Leukocyte Esterase Trace H (Negative) Urine WBC (Auto) 1-5 (0-5) /hpf Urine RBC (Auto) 0-4 (0-4) /hpf U Hyaline Cast (Auto) 1-5 (0-5) /lpf U Epithel Cells (Auto) 5-10 H (0-5) /lpf Urine Bacteria (Auto) Negative (Negative) 09/29/18 Range/Units 12:38 WBC 8.32 (4.8-10.8) K/uL RBC 4.75 (4.7-6.1) M/uL Hgb 15.3 (14.0-18.0) g/dL Hct 43.3 (42-52) % MCV 91.2 (80-100) fL MCH 32.2 (25-34) pg MCHC 35.3 (32-36) g/dL RDW Std Deviation 45.2 (36.4-46.3) fL RDW Coeff of Danny 13.6 (11.5-14.5) % Plt Count 238 (130-400) K/uL MPV 12.4 H (7.4-10.4) fL Immature Gran % (Auto) 0.2 % Neut % (Auto) 63.7 % Lymph % (Auto) 21.6 % Mathews % (Auto) 10.9 % Eos % (Auto) 3.1 % Baso % (Auto) 0.5 % Immature Gran # (Auto) 0.02 (0.00-0.02) K/uL Neut # (Auto) 5.29 (1.4-6.5) K/uL Lymph # (Auto) 1.80 (1.2-3.4) K/uL Mathews # (Auto) 0.91 H (0.11-0.59) K/uL Eos # (Auto) 0.26 (0-0.5) K/uL Baso # (Auto) 0.04 (0-0.2) K/uL Sodium (136-145) mmol/L Potassium (3.5-5.1) mmol/L Chloride (98-107) mmol/L Carbon Dioxide (21-32) mmol/L Anion Gap (3-11) BUN (7-18) mg/dl Creatinine (0.6-1.4) mg/dl Est Cr Clr Drug Dosing ml/min Est GFR ( Amer) Est GFR (Non-Af Amer) BUN/Creatinine Ratio (10-20) Glucose (70-99) mg/dl Calcium (8.5-10.1) mg/dl Total Bilirubin (0.2-1) mg/dl AST (15-37) U/L ALT (12-78) U/L Alkaline Phosphatase (45-117) U/L Total Protein (6.4-8.2) gm/dl Albumin (3.4-5.0) gm/dl Globulin (2.5-4.0) gm/dl Albumin/Globulin Ratio (0.9-2) Lipase (73-393) U/L Urine Color Urine Appearance (Clear) Urine pH (4.5-7.5) Ur Specific [place] (1.000-1.030) Urine Protein (Negative) Urine Glucose (UA) (Negative) Urine Ketones (Negative) Urine Blood (Negative) Urine Nitrite (Negative) Urine Bilirubin (Negative) Urine Urobilinogen (Negative) Ur Leukocyte Esterase (Negative) Urine WBC (Auto) (0-5) /hpf Urine RBC (Auto) (0-4) /hpf U Hyaline Cast (Auto) (0-5) /lpf U Epithel Cells (Auto) (0-5) /lpf Urine Bacteria (Auto) (Negative)
[2018-09-30] MEDS: ONDANSETRON INJ 2 MG/ML 2 ML VIAL IV PRN ×2 (15:44→23:17)
[2018-10-01] MEDS: OXYCODONE/ACETAMINOPHEN 5mg/325mg TAB PO PRN ×3 (03:26→12:25)
[2018-10-01 06:59] VITALS: PULSE 88; TEMP 98.4; O2SAT 94
[2018-10-01] MEDS: D5W AND 1/2NSS + 20MEQ KCL 20 MEQ/1,000 ML BAG IV SCH (07:31)
[2018-10-01] MEDS: PANTOprazole 40 MG TAB PO SCH (07:32)
--- NOTE | 2018-10-01 08:51 | Surgery Progress Note ---
Date of Service October 01, 2018 Assessment & Plan (1) Acute cholecystitis: He is doing well postoperatively. His pain is decreased down to incisional. He is tolerating a regular diet. He can be discharged to home I discussed his postoperative activity restrictions He will follow-up in 2 weeks Present on Admission?: Yes Subjective Postoperative day #2, status post laparoscopic cholecystectomy Is having very little pain and the discomfort in the right upper quadrant with deep breathing has resolved Tolerating a regular diet without nausea or vomiting Passing flatus Kostas-Arshad had 20 cc out over the last shift and serosanguineous Physical Exam Gastrointestinal (Abdomen): Inspection/Auscultation: + abdominal surgical incision (They are clean, dry and intact); abdomen not distended Percussion/Palpation: + abdomen tender (Incisional only) and abdomen soft Results & Data Vital Signs (Past 12 Hours) Vital Signs Temp Pulse Resp BP Pulse Ox 10/01/18 06:57 36.9 C 88 18 118/81 94 09/30/18 23:02 36.8 C 80 19 125/86 96
--- NOTE | 2018-10-01 08:57 | Discharge Summary ---
Date of Service October 01, 2018 Admission HPI Per Admitting Provider This is a 53-year-old male with right upper quadrant pain that began approximately 2 days ago after having a. The pain is persisted increased in intensity. He he had some nausea and vomited the pain so. Hungry but is not a very much since. He had an episode of pain like this about 2 months ago but it resolved spontaneously after about 2 hours. The pain does not radiate through to his back. He has no history of jaundice, hepatitis or pancreatitis. He has been moving his bowels and had a normal bowel movement or hematochezia. He has a headache but does not think he has had fever. He denies chills. Admission Exam Per Admitting Provider Constitutional: no acute distress Neck: trachea midline Respiratory: normal respiratory effort, lungs clear to auscultation Cardiovascular: Rate/Rhythm: regular rate and regular rhythm Gastrointestinal (Abdomen): Inspection/Auscultation: normal bowel sounds; abdomen not distended Percussion/Palpation: + abdomen tender (Right upper quadrant to moderate palpation) and abdomen soft Skin: no rashes, warm and dry Lymphatic: no cervical lymphadenopathy Principal Diagnosis Acute cholecystitis Discharge Exam Respiratory normal respiratory effort, lungs clear to auscultation Cardiovascular Rate/Rhythm: regular rate and regular rhythm Gastrointestinal (Abdomen) Inspection/Auscultation: normal bowel sounds and + abdominal surgical incision (They are clean, dry and intact); abdomen not distended Percussion/Palpation: + abdomen tender (Incisional only) and abdomen soft Skin no rashes, warm and dry Lymphatic no cervical lymphadenopathy Discharge Data Allergies Allergy/AdvReac Type Severity Reaction Status Date / Time morphine Allergy Hypotension Verified 09/29/18 14:28 Penicillins Allergy Rash Verified 09/29/18 14:28 Consultations 09/29/18 17:37 Consult General Surgery Stat Procedures Performed Operation Date: 09/29/18 09:35 Actual Procedures p Laparoscopic Cholecystectomy(Not Applicable) - Mars Busby MD Ordered Studies 09/29/18 13:06 US gallbladder Stat Hospital Course (1) Acute cholecystitis: The patient was taken to the operating room and underwent a laparoscopic cholecystectomy. It was a difficult procedure due to the adhesions and the acute nature of his cholecystitis. Postoperatively he did well. The drain had serosanguineous drainage by postoperative day #2 and he was tolerating a regular diet. On the day of discharge which was postoperative day #2: He is doing well postoperatively. His pain is decreased down to incisional. He is tolerating a regular diet. He can be discharged to home I discussed his postoperative activity restrictions He will follow-up in 2 weeks Total Time Total Time Spent Total Time Spent (In Minutes): 10 Discharge Plan Discharge Items Patient Disposition: Home - Self-Care Reason For Visit: ACUTE CHOLECYSTITIS Discharge Diagnosis: Same Discharge Goals: Decrease discomfort Activity: Per 'Additional Instructions' section Non-emergency contact: Surgeon Call non-emergency contact if: your temperature is above 101.5, your wound has increased redness and your wound pain has increased Follow-up/Referrals: PCP,NO [Primary Care Provider] - Diet: Regular Addtl Provider Instructions: Post-Surgical ~Discharge Instructions Activity Recommendations: - lifting limitation: (10 pounds for 2 weeks), - exercise/sex/sports limit: (nonstrenuous for 2 weeks), - driving or machine use limit: (none for 1 week), - Shower/bathe limit: (may shower beginning tomorrow) Diet: - Resume previous diet SPECIAL CARE INSTRUCTIONS: - May shower in 24 hours. Let water run over area and pat dry. - Leave steri strips on for one week. - Call the surgeon's office with any questions or concerns - - (ex. temperature higher than 101 degrees F, excessive bleeding or pain). MEDICATIONS: - Resume previous medications unless instructed otherwise by your surgeon. - Ibuprofen 600 mg every 6 hours with food - Percocet 1 every 4 hours, as needed for pain FOLLOW UP VISIT: - If not already scheduled, please call the office to schedule a two week follow-up appointment. Office number Prescriptions: New oxycodone-acetaminophen [Percocet] 5-325 mg Tablet 1 tab PO Q4H PRN (Reason: pain) Qty: 5 RF: 0 Continued Prilosec OTC 20 mg Tablet,Delayed Release (Dr/Ec) 20 mg PO BID RF: 0 Stand-Alone Forms: Call Back Authorization, [facility] Discharge Orders: Discharge Order (Routine); Ordered 10/01/18 Ordered By: Mars Busby Admission Data Admit Date/Time: 09/29/18 22:06 Attending Provider: Mars Busby Admit Provider: Mars Busby Primary Care Provider: PCP,NO Other Providers: Mars Busby Service: Surgical Services
[2018-10-01] MEDS: MoRPHine SULFATE 4 MG/ML 1 ML CARP\\VIAL IV PRN (10:50)
[2018-10-01 12:57] VITALS: BP 132/90
== END 2018-10-01 14:21 | disposition home or self-care (01) ==
LOC: ED 12:04 → 3N 17:30 → OR 17:30